=== PATIENT | female | born 1960 | race Caucasian/White ===

== ENCOUNTER → 2016-09-26 | Outpatient (CLI) | payer BC ==
[~2016-09-26] MED LIST: ARMOUR THYROID120 MG PO; CITRACAL PLUS1 TAB; CITRUCEL WITH500 MG PO; HCTZ 25MG TAB25 MG PO; KLONOPIN 0.5MG0.5 MG PO; SYNTHROID 0.0.025 MG PO; ULTRAM 50MG TAB50 MG PO; VITAMIN B125000 MCG PO; VITAMIN D32000 I1 PO; [UNRECOGNIZED DRUG - OTHER] PO; [UNRECOGNIZED DRUG - REMARK]
== END ==
LOC: COL.RAD 12:12
DX: E04.1 Nontoxic single thyroid nodule (principal)

== ENCOUNTER → 2018-09-21 | Outpatient (CLI) | payer BC | LOC: MC.RAD 14:29 | DX: Z12.31 Encounter for screening mammogram for malignant neoplasm of breast (principal) ==

== ENCOUNTER → 2019-09-13 | Outpatient (CLI) | payer BC | LOC: COL.RAD 09-09 15:30 | DX: E04.2 Nontoxic multinodular goiter (principal) ==

== ENCOUNTER → 2019-09-30 | Outpatient (CLI) | payer BC | LOC: MC.RAD 15:58 | DX: Z12.31 Encounter for screening mammogram for malignant neoplasm of breast (principal) ==

== ENCOUNTER → 2021-02-26 | Outpatient (CLI) | payer BC | LOC: MC.RAD 13:30 | DX: Z12.31 Encounter for screening mammogram for malignant neoplasm of breast (principal) ==

== ENCOUNTER → 2021-06-14 | Outpatient (CLI) | payer BC | LOC: MC.RAD 13:57 | DX: N63.10 Unspecified lump in the right breast, unspecified quadrant (principal) ==